=== PATIENT | female | born 1965 | race Caucasian/White ===

== ENCOUNTER 2017-04-22 08:52 | Day surgery (SDC) | payer BC ==
[~2017-04-22] VITALS: Ht 162.6 cm; Wt 80.3 kg
--- NOTE | ~2017-04-22 | OP ---
PATIENT NAME: CARROLL PEREZ MEDICAL RECORD: [id number] :67 LOCATION:[facility] ADMISSION DATE: SURGEON: SOSA GALLEGOS MD DATE OF OPERATION: 04/22/2017 PREOPERATIVE DIAGNOSES: Chronic tonsillitis and recurrent uvula edema. POSTOPERATIVE DIAGNOSES: Chronic tonsillitis and recurrent uvula edema. PROCEDURES: Tonsillectomy, uvulectomy. SURGEON: Sosa Gallegos MD ANESTHESIA: General orotracheal. BLOOD LOSS: Less than 5 cc. SPECIMENS: Right and left tonsil. COMPLICATIONS: None. DISPOSITION: Recovery stable. DESCRIPTION OF PROCEDURE: She is brought to the operating room and placed in supine position, sedated and intubated by anesthesia. The table was turned 90 degrees. Head drape was applied and she was positioned for tonsillectomy. Using a headlight, a Gary-Korey mouth gag was carefully inserted and elevated on a towel on the chest. The palate was examined and palpated, it was normal. The palate was retracted. Nasopharynx was examined with a mirror. Choanae and eustachian tube orifices were normal bilaterally. No significant adenoid tissue. The right tonsil was grasped at the superior pole with a straight Allis clamp. Spatula tip cautery on a setting of 9 was used to dissect out the tonsil along its capsule, preserving the anterior and posterior tonsillar pillars. The left tonsil was removed in the same fashion. The pharynx was irrigated. Yankauer suction was used to agitate the tonsillar fossa. Suction cautery on a setting of 20 was used to control minimal oozing. With the field clean and dry, the base of the uvula was injected with less than 0.5 cc of 1% lidocaine with 1:100,000 epinephrine on a long 27-gauge needle and a spatula tip cautery on a setting of 10 was used to divide the mucosa preserving all the nasopharyngeal mucosa of the palate and the uvula was removed. Bleeding was controlled with cautery and then the defect and the uvula and the palate was closed with interrupted 3-0 Vicryl. There was no bleeding. With the field clean and dry, the pharynx was suctioned and the Gary-Korey mouth gag was let down and removed. She was awakened, extubated, and transported to recovery in good condition. No complications. TRANSINT:[id number] Voice Confirmation ID: [id number] DOCUMENT ID: [id number] OPERATIVE REPORT [id number] CARROLL PEREZ ERIC MD CC: [id number] DICTATION DATE: 04/22/17 125 SERVICE DELIVERY MANAGEMENT CONSULTANT: 04/22/172221 [facility] 04/22/17 [place] [id number]
[~2017-04-22 08:52] MED LIST: DILAUDID2 MG PO
--- NOTE | 2017-04-22 09:38 | HP ---
PATIENT: CARROLL PEREZ MEDICAL RECORD: [id number] ACCOUNT: [id number] LOCATION:[facility] : 67 ADMISSION DATE: 04/22/17 HISTORY AND PHYSICAL EXAMINATION Preoperative History and Physical HISTORY OF PRESENT ILLNESS: Carroll is a 51-year-old female. She is having problems with her throat, persistent problems with tonsillitis and recurrent uvula edema. She is being admitted for tonsillectomy and uvulectomy. PAST MEDICAL HISTORY: Otherwise negative. PAST SURGICAL HISTORY: Includes tubal ligation, hysterectomy and left leg surgery. CURRENT MEDICATIONS: None. ALLERGIES: No known drug allergies. PHYSICAL EXAMINATION: GENERAL: She is healthy-appearing, developmentally normal. FACE: Normal and symmetric. No lesions. EYES: Sclerae and conjunctivae are normal. EARS: Canals and TMs are normal. NOSE: No mass, polyps or drainage. ORAL CAVITY AND OROPHARYNX: Long thick uvula was edematous towards the tip with granular changes, and large crypts and tonsilliths bilaterally. NECK: No masses, no adenopathy. CHEST: Clear. CARDIOVASCULAR: Regular rate and rhythm, no murmur. EXTREMITIES: Normal. IMPRESSION: Caseous tonsillitis and inflamed, edematous uvula. PLAN: Tonsillectomy and uvulectomy. TRANSINT:[id number] Voice Confirmation ID: [id number] DOCUMENT ID: [id number] SOSA KHAN MD at 0938 CC: [id number] DICTATION DATE: 04/18/17 1518 [place] SUPERVISOR: 04/18/17 1609 [facility] [address] [place] [address]
[2017-04-22 10:18] VITALS: BP 127/70; Ht 162.6 cm; Wt 80.3 kg
== END 2017-04-22 16:10 | disposition home or self-care (01) ==
LOC: D.OPS 08:52 → D.PAN 05-13 07:30
DX: J35.01 Chronic tonsillitis (principal); K13.79 Other lesions of oral mucosa

== ENCOUNTER 2018-01-09 06:57 | Day surgery (SDC) | payer BC ==
[~2018-01-09] VITALS: Ht 165.1 cm; Wt 80.7 kg
--- NOTE | ~2018-01-09 | OP ---
PATIENT NAME: CARROLL PEREZ MEDICAL RECORD: [id number] :67 LOCATION:[facility] ADMISSION DATE: SURGEON: FADI MADRIGAL MD DATE OF OPERATION: 01/09/2018 PREOPERATIVE DIAGNOSIS: Symptomatic hardware of the left elbow. POSTOPERATIVE DIAGNOSIS: Symptomatic hardware of the left elbow. PROCEDURE: Removal of olecranon plate. SURGEON: Fadi Madrigal MD ANESTHESIA: General. INTRAOPERATIVE COMPLICATIONS: None. SUMMARY OF PATHOLOGIC INDICATIONS: This is a 52-year-old female who fell and had sustained olecranon fracture while vacationing [place], it was fixed out there. The olecranon plate was placed on out there and while she did heal very nicely, the olecranon plate blocked her olecranon fossa causing limits of terminal extension and pain. OPERATIVE SUMMARY IN DETAIL: After obtaining the appropriate preoperative orthopedic surgery consent as well as anesthetic consultation, evaluation, and clearance, the patient was brought to the operating room and placed on the operating table in supine position. After general laryngeal mask was administered, tourniquet was placed about the proximal aspect of the left upper extremity. Left upper extremity was then prepped and draped in routine sterile fashion. The arm was elevated and exsanguinated, tourniquet inflated to 250 mmHg. The previously utilized incision was utilized again and it was a lateral-based incision to be able to pull the skin over the olecranon without making an incision straight over the olecranon. This was repeated, the incision was taken down to the plate, it was gently dissected out. All screws were then removed, serial and sequentially. The plate was then removed. Soft tissue was gently rongeured back soft. Copious irrigation was then followed by closure of the wound with 2-0 Vicryl followed by skin cornel in a running fashion. Sterile dressings were applied. Tourniquet was deflated. The patient was awakened, taken to the recovery room in stable condition. All final needle and sponge counts were correct. TRANSINT:[id number] Voice Confirmation ID: [id number] DOCUMENT ID: [id number] FADI MADRIGAL MD at 1133 CC: [id number] DICTATION DATE: 01/09/182027 PIT FURNACE MELTER: 01/10/18 0652 [facility] 01/09/18 [facility] [address] [facility] [place] [address]
[2018-01-09 07:32] LABS: HEMATOCRIT 39.3 % (36.0-48.0); HEMOGLOBIN 13.3 g/dL (12-16); MCH 28.9 pg (26.0-34.0); MCHC 33.8 g/dL (31.0-37.0); MCV 85.4 fL (80.0-100.0); MEAN PLATELET VOLUME 9.5 fL (7.4-10.4); RBC 4.6 10x6/uL (4.00-5.40); RDW 12.9 % (11.5-14.5); WBC 3.3 10x3/uL (4.8-10.8)
[2018-01-09 08:17] VITALS: BP 124/71; Ht 165.1 cm; Wt 80.7 kg
[2018-01-09] MEDS ORDERED: HYDROCODONE-APA1 TAB PO (13:28)
== END 2018-01-09 13:38 | disposition home or self-care (01) ==
LOC: D.OPS 06:57 → D.PAN 13:45 → D.OPS 13:45
PROVIDERS: Anesthesiology
DX: T84.84XA Pain due to internal orthopedic prosthetic devices, implants and grafts, initial encounter (principal); M25.522 Pain in left elbow; Z01.812 Encounter for preprocedural laboratory examination

== ENCOUNTER → 2019-03-18 16:35 | Outpatient (CLI) | payer BC ==
[2018-01-09 08:17] VITALS: BMI 29.6
[~2019-03-18 16:35] MED LIST changes: +HYDROCODONE-APA1 TAB PO
== END | disposition home or self-care (01) ==
LOC: D.MAMMO 13:15
PROVIDERS: ATTEND Emergency Medicine
DX: Z12.31 Encounter for screening mammogram for malignant neoplasm of breast (principal)

== ENCOUNTER 2019-04-17 09:00 | Outpatient (CLI) | payer BC ==
[2018-01-09 08:17] VITALS: BMI 29.6
== END 2019-04-17 10:00 | disposition home or self-care (01) ==
LOC: D.MAMMO 09:00
PROVIDERS: ATTEND Nurse Practitioner Family
DX: R92.8 Other abnormal and inconclusive findings on diagnostic imaging of breast (principal)

== ENCOUNTER → 2019-09-08 07:50 | Outpatient (CLI) | payer BC ==
[2018-01-09 08:17] VITALS: BMI 29.6
== END | disposition home or self-care (01) ==
LOC: D.MRI 07:50
PROVIDERS: ATTEND Clinical Nurse Specialist Family Health
DX: M25.561 Pain in right knee (principal)